=== PATIENT | female | born 1990 | race Caucasian/White ===

== ENCOUNTER 2016-11-06 21:36 | Emergency (ER) | payer OTHER ==
[~2016-11-06] VITALS: Ht 149.9 cm; Wt 59.3 kg
[2016-11-07] MEDS ORDERED: MAGNESIUM/ALUMINUM HYDROXIDE/SIMETHICONE 30ML UDC PO STA (01:35)
[2016-11-07] MEDS ORDERED: DICYCLOMINE 10 MG/5 ML ORAL SYR PO STA (01:35)
[2016-11-07] MEDS ORDERED: VISCOUS LIDOCAINE 2% 15 ML UDC PO STA (01:35)
[2016-11-07 01:54] LABS: BASOPHILS % 0.3 % (0.0-2.0); HEMOGLOBIN. 12.5 g/dL (12.0-16.0); LYMPHOCYTES % 29.6 % (20.0-50.0); MEAN CORPUSCULAR HEMOGLOBIN 29.1 pg (28.0-32.0); MEAN CORPUSCULAR VOLUME 86.5 fL (81.0-99.0); MEAN PLATELET VOLUME 8.8 fl (7.4-10.4); MONOCYTES % 7.3 % (2.0-8.0); NEUTROPHILS % 61.8 % (40.0-76.0); PLATELET 254 x1000/uL (130-400); RED BLOOD CELL COUNT 4.28 mill/uL (4.2-5.4); RED CELL DISTRIBUTION WIDTH 14.3 % (11.6-14.6)
[2016-11-07 01:58] LABS: CHLORIDE 103 mEq/L (98-107)
[2016-11-07 02:01] LABS: CLARITY URINE CLOUDY (CLEAR); GLUCOSE URINE NEGATIVE (NEGATIVE); KETONES URINE 1+ (NEGATIVE); LEUKOCYTE ESTERASE URINE 2+ (NEGATIVE); NITRITE URINE NEGATIVE (NEGATIVE); OCCULT BLOOD URINE 3+ (NEGATIVE); PROTEIN URINE NEGATIVE (NEGATIVE); UROBILINOGEN URINE 0.2 E.U./dL (0.2-1.0)
[2016-11-07 02:03] LABS: INR 1.1; PROTHROMBIN TIME 11.2 sec
[2016-11-07 02:04] LABS: UCG SCREEN NEGATIVE
[2016-11-07 02:07] LABS: CARBON DIOXIDE 26 mEq/L (21-32)
[2016-11-07 02:18] LABS: COLOR URINE YELLOW (YELLOW)
[2016-11-07 05:20] VITALS: BP 148/77
== END 2016-11-07 05:22 | disposition home or self-care (01) ==
LOC: ER 21:36
DX: N39.0 Urinary tract infection, site not specified (principal); R10.13 Epigastric pain
CPT/HCPCS: 36415; 80053; 81001; 81025; 83690; 85025; 85610; 99284; Z7610

== ENCOUNTER 2021-03-21 03:37 | Emergency (ER) | payer MEDICAID, OTHER ==
[~2021-03-21] VITALS: Ht 149.9 cm; Wt 80.0 kg
[2021-03-21 04:19] LABS: BASOPHILS % 0.4 % (0.0-2.0); EOSINOPHILS % 1.8 % (0.0-5.0); HEMATOCRIT. 40.2 % (36.0-48.0); HEMOGLOBIN. 13.6 g/dL (12.0-16.0); LYMPHOCYTES % 30.5 % (20.0-50.0); MEAN CORPUSCULAR HEMOGLOBIN 30.6 pg (28.0-32.0); MEAN CORPUSCULAR VOLUME 90.4 fL (81.0-99.0); MEAN PLATELET VOLUME 8.7 fl (7.4-10.4); MONOCYTES % 7.2 % (2.0-8.0); NEUTROPHILS % 60.1 % (40.0-76.0); PLATELET 282 x1000/uL (130-400); RED BLOOD CELL COUNT 4.45 mill/uL (4.2-5.4); RED CELL DISTRIBUTION WIDTH 15.4 % (11.6-14.6)
[2021-03-21 04:31] LABS: CHLORIDE 105 mEq/L (98-107)
[2021-03-21 04:56] LABS: B-HCG QUANTITATIVE 7039 mIU/mL (<3)
[2021-03-21 06:15] VITALS: BP 127/84
[2021-03-21] MEDS ORDERED: TOPUD PO (06:53)
[2021-03-21 09:40] LABS: CLARITY URINE CLEAR (CLEAR); COLOR URINE YELLOW (YELLOW); KETONES URINE NEGATIVE (NEGATIVE); LEUKOCYTE ESTERASE URINE 3+ (NEGATIVE); NITRITE URINE NEGATIVE (NEGATIVE); OCCULT BLOOD URINE 3+ (NEGATIVE); PROTEIN URINE NEGATIVE (NEGATIVE); SPECIFIC GRAVITY URINE 1.006 (1.005-1.030); UROBILINOGEN URINE 0.2 E.U./dL (0.2-1.0)
== END 2021-03-21 07:02 | disposition home or self-care (01) ==
LOC: ER 03:37
DX: O20.0 Threatened abortion (principal); Z3A.01 Less than 8 weeks gestation of pregnancy
CPT/HCPCS: 36415; 76801; 80053; 81003; 81025; 84702; 85025; 86850; 86900; 99284

== ENCOUNTER 2021-03-22 21:54 | Emergency (ER) | payer MEDICAID ==
[~2021-03-22] VITALS: Ht 149.9 cm; Wt 79.0 kg
[~2021-03-22 21:54] MED LIST: TOPUD PO
[2021-03-23 00:25] LABS: BASOPHILS % 0.3 % (0.0-2.0); HEMATOCRIT. 37.4 % (36.0-48.0); HEMOGLOBIN. 12.6 g/dL (12.0-16.0); LYMPHOCYTES % 18.7 % (20.0-50.0); MEAN CORPUSCULAR HEMOGLOBIN 30.5 pg (28.0-32.0); MEAN CORPUSCULAR VOLUME 90.5 fL (81.0-99.0); MEAN PLATELET VOLUME 8.6 fl (7.4-10.4); MONOCYTES % 5.7 % (2.0-8.0); NEUTROPHILS % 74.3 % (40.0-76.0); PLATELET 255 x1000/uL (130-400); RED BLOOD CELL COUNT 4.13 mill/uL (4.2-5.4)
[2021-03-23 00:34] LABS: CHLORIDE 106 mEq/L (98-107)
[2021-03-23 00:56] LABS: B-HCG QUANTITATIVE 4005 mIU/mL (<3)
[2021-03-23 01:25] VITALS: BP 128/74
== END 2021-03-23 01:35 | disposition home or self-care (01) ==
LOC: ER 21:54
DX: O03.4 Incomplete spontaneous abortion without complication (principal); Z3A.01 Less than 8 weeks gestation of pregnancy
CPT/HCPCS: 36415; 76801; 80053; 84702; 85025; 99284